=== PATIENT | female | born 1990 | race Caucasian/White ===

== ENCOUNTER 2023-08-22 00:55 | Emergency (ER) | payer OTHER, SELFPAY ==
[2023-08-22 01:10] VITALS: BP 161/117; PULSE 104; RESP 31; O2SAT 98
[2023-08-22 01:12] VITALS: BP 130/86; BP 161/77; PULSE 102; PULSE 107; RESP 31; TEMP 36.7; O2SAT 97; O2SAT 98; BMI 34.3
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
[2023-08-22 02:00] VITALS: BP 152/100; PULSE 99; RESP 18; O2SAT 97
--- NOTE | 2023-08-22 03:24 | PC.NURSE ---
pt has calmed down significantly since arrival, respirations now even and unlabored, HR down to 90s, sleeping at this time
[2023-08-22 04:32] VITALS: BP 110/74; PULSE 96; RESP 18; TEMP 36.3; O2SAT 93
[2023-08-22 06:24] VITALS: BP 142/80; PULSE 96; RESP 16; TEMP 37.2; O2SAT 99
== END 2023-08-22 06:24 ==
PROVIDERS: Emergency Provider Emergency Medicine
DX: S20.219A Contusion of unspecified front wall of thorax, initial encounter (principal); R07.89 Other chest pain; R07.81 Pleurodynia; F41.1 Generalized anxiety disorder; F43.0 Acute stress reaction; V43.52XA Car driver injured in collision with other type car in traffic accident, initial encounter; Y93.9 Activity, unspecified; Y92.410 Unspecified street and highway as the place of occurrence of the external cause; Y99.9 Unspecified external cause status
CPT/HCPCS: 71111; 93005; 99283; 99285